=== PATIENT | female | born 1940 | race Caucasian/White ===

== ENCOUNTER 2018-01-17 12:13 | Emergency (ER) | payer OTHER ==
[2018-01-17 13:26] LABS: Absolute Lymphocytes (CBC) 1.5 K/uL (0.7-4.9); Absolute Monocytes 0.5 K/uL (0.1-1.3); Absolute Neutrophil 2.8 K/uL (1.8-8.0); Basophils % 0.7 % (0-1.3); Eosinophils % 0.9 % (0-4.4); MCH 29.6 pg (27.0-35.0); MCV 88.9 fL (80-100); MPV 8.3 fL (7.6-11.3); Monocytes % 9.8 % (3.3-12.3); RBC Red Blood Cell Count 4.17 M/uL (3.86-4.86)
[2018-01-17 13:38] LABS: Potassium 3.8 mEq/L (3.6-5.0)
[2018-01-17 13:44] LABS: Albumin 3.9 g/dL (3.2-5.5); Bilirubin Direct 0.1 mg/dL (0-0.2); Bilirubin Total 0.6 mg/dL (0.3-1.2); Magnesium 2.1 mg/dL (1.8-2.5); Protein, Total 6.9 g/dL (6.0-8.3)
[2018-01-17 13:48] LABS: CKMB Creatine Kinase MB 1.4 ng/ml (0.3-4.0)
--- NOTE | 2018-01-17 14:16 | RAD REPORT ---
EXAM DESCRIPTION: [place] Single View01/17/2018 1:40 pm CLINICAL HISTORY: Hypertension COMPARISON: November 2016 FINDINGS: The lungs appear clear of acute infiltrate. The heart is borderline enlarged IMPRESSION: No acute abnormalities displayed
--- NOTE | 2018-01-17 14:43 | RAD REPORT ---
EXAM DESCRIPTION: CTFacial Bones W Con Mpr01/17/2018 2:15 pm CLINICAL HISTORY: Jaw pain/facial pain COMPARISON: None. TECHNIQUE: Computed axial tomography of the face was obtained. 50 cc Isovue-[address] scans are performed using dose optimization technique as appropriate and may include automated exposure control or mA/KV adjustment according to patient size. FINDINGS: A 1 centimeter low to intermediate density area is present within the left aspect of the e piglottis. The aryepiglottic folds are normal. The remainder of the visualized nasopharynx and oropha rynx appear unremarkable. The parotid and submandibular glands appear unremarkable. Fluid within the sinuses is not seen. Fluid within the mastoids is not noted. A tooth abscess is not seen. . IMPRESSION: 1 centimeter low to intermediate density area within the left aspect of the epiglottis m ay represent a mass. Direct visualization is recommended. .
--- NOTE | 2018-01-17 15:39 | EDPHYS ---
Physician Documentation [facility] Name: Marisol San Age: 77 yrs Sex: Female : 1940 Arrival Date: 01/17/2018 Time: 12:15 Bed 16 Private MD: Lamont Brennan V ED Physician Murali Park HPI: 01/17 12:55 This 77 yrs old Female presents to ER via Ambulatory with complaints of Jaw cp Pain. 12:55 The patient presents with pain, swelling right facial cheek area. The problem is cp located in the right jaw. 12:55 Onset: The symptoms/episode began/occurred yesterday. Duration: The symptoms are cp intermittent, with no pattern. Associated signs and symptoms: Pertinent negatives: dysphagia, fever, inability to eat, vomiting. Patient denies chest pain, denies neck pain, denies difficulty swallowing or food getting stuck. Historical: - Allergies: 12:32 Levothyroxine Sodium; ph 12:32 Morphine; ph 12:32 NSAIDS; ph 12:32 Sulfa (Sulfonamide Antibiotics); ph 12:32 OTC medications; ph - Home Meds: 12:32 aspirin 325 mg Oral TbEC 1 tab once daily [Active]; metoprolol tartrate 25 mg Oral tab ph 0.5 tab 2 times per day [Active]; - PMHx: 12:32 Cataracts; Hypertension; ph - PSHx: 12:32 CATARACTS; Cholecystectomy; ovaries; ph - Immunization history:: Adult Immunizations up to date. - Social history:: Smoking status: Patient/guardian denies using tobacco. - Ebola Screening: : Patient denies travel to an Ebola-affected area in the 21 days before illness onset. ROS: 13:00 Constitutional: Negative for body aches, chills, fever, poor PO intake. cp 13:00 Eyes: Negative for injury, pain, redness, and discharge. cp 13:00 ENT: Positive for right side jaw pain, Negative for injury or acute deformity, drainage from ear(s), ear pain, sore throat, dental pain, difficulty swallowing, difficulty handling secretions. 13:00 Neck: Negative for pain with movement, pain at rest, stiffness, bony tenderness. 13:00 Cardiovascular: Negative for chest pain, edema, palpitations. 13:00 Respiratory: Negative for cough, shortness of breath, wheezing. 13:00 Abdomen/GI: Negative for abdominal pain, nausea, vomiting, and diarrhea, anorexia, black/tarry stool, rectal bleeding. 13:00 Back: Negative for pain at rest, pain with movement, radiated pain. 13:00 : Negative for urinary symptoms. 13:00 Skin: Negative for cellulitis, rash. 13:00 Neuro: Negative for altered mental status, dizziness, headache, syncope, near syncope, weakness. 13:00 All other systems are negative. Exam: 13:08 Constitutional: The patient appears in no acute distress, alert, awake, cp non-diaphoretic, non-toxic, well developed, well nourished. 13:08 Eyes: Pupils equal round and reactive to light, extra-ocular motions intact. Lids and cp lashes normal. Conjunctiva and sclera are non-icteric and not injected. Cornea within normal limits. Periorbital areas with no swelling, redness, or edema. 13:08 Head/face: Noted is swelling, that is mild, of the right facial cheek, Sinus tenderness, is not appreciated. 13:08 ENT: External ear(s): are unremarkable, Ear canal(s): are normal, clear, TM's: are normal, no evidence of bulging, no erythema, dullness, bilaterally, Nose: is normal, Mouth: Lips: moist, Oral mucosa: pink and intact, moist, Tongue: is normal, abscess, is not appreciated, Posterior pharynx: Airway: no evidence of obstruction, patent, Tonsils: are normal in appearance, Uvula: midline, non-edematous, no erythema, swelling, is not appreciated, erythema, is not appreciated, exudate, is not appreciated, Dental exam: abscess, is not appreciated, fractured teeth are noted, not appreciated, gum swelling, not appreciated, pain, is not appreciated, Voice: is normal. 13:08 Neck: External neck: is normal, ROM/movement: is normal, is supple, without pain, no range of motions limitations, no meningismus, no nuchal rigidity. 13:08 Chest/axilla: Inspection: normal, Palpation: is normal, no crepitus, no tenderness. 13:08 Cardiovascular: Rate: normal, Rhythm: regular, Edema: is not appreciated, JVD: is not appreciated. 13:08 Respiratory: the patient does not display signs of respiratory distress, Respirations: normal, no use of accessory muscles, no retractions, no splinting, no tachypnea, labored breathing, is not present, Breath sounds: are clear throughout, no decreased breath sounds, no stridor, no wheezing. 13:08 Abdomen/GI: Inspection: abdomen appears normal, Palpation: abdomen is soft and non-tender, in all quadrants, rebound tenderness, is not appreciated, voluntary guarding, is not appreciated, involuntary guarding, is not appreciated. 13:08 Back: pain, is absent, ROM is normal. 13:08 Skin: cellulitis, is not appreciated, no rash present. 13:08 Neuro: Orientation: to person, place \T\ time. Mentation: lucid, able to follow commands, Motor: moves all fours, strength is normal, Sensation: no obvious gross deficits. 14:05 ECG was reviewed by the Attending Physician. cp Vital Signs: 12:30 BP 146 / 92; Pulse 82; Resp 18; Temp 98.0; Pulse Ox 95% on R/A; Weight 65.77 kg; Height ph 5 ft. 4 in. (162.56 cm); Pain 8/10; 13:00 BP 132 / 82; Pulse 75; Resp 17; Pulse Ox 96% on R/A; tw2 14:04 BP 134 / 83; Pulse 73; Resp 17; Pulse Ox 96% on R/A; tw2 15:11 BP 136 / 72; Pulse 81; Resp 21; Pulse Ox 96% on R/A; tw2 15:56 BP 125 / 79; Pulse 74; Resp 17; Pulse Ox 97% on R/A; tw2 12:30 Body Mass Index 24.89 (65.77 kg, 162.56 cm) ph MDM: 12:35 Patient medically screened. cp 13:00 Differential diagnosis: dental caries, dental abscess, pericoronitis, osteomyelitis, cp facial cellulitis, acute OK, angina. 15:33 Data reviewed: vital signs, nurses notes, lab test result(s), radiologic studies, CT cp scan. 15:35 Test interpretation: by ED physician or midlevel provider: ECG, plain radiologic cp studies. 15:35 Counseling: I had a detailed discussion with the patient and/or guardian regarding: the cp historical points, exam findings, and any diagnostic results supporting the discharge/admit diagnosis, lab results, radiology results, the need for outpatient follow up, an ENT specialist, maxillary/facial, to return to the emergency department if symptoms worsen or persist or if there are any questions or concerns that arise at home. Response to treatment: the patient's symptoms have mildly improved after treatment, and as a result, I will discharge patient. ED course: VSS. Discussed results of CT that showed concern for epiglottis mass. Patient with no signs of respiratory distress and is tolerating po foods/fluids. Cardiac work-up negative. Will discharge to home for continued monitoring. 01/17 12:51 Order name: Basic Metabolic Panel 01/17 12:51 Order name: CBC with Diff; Complete Time: 13:56 cp 01/17 12:51 Order name: Ckmb; Complete Time: 13:56 cp 01/17 12:51 Order name: CPK; Complete Time: 13:56 cp 01/17 12:51 Order name: LFT's; Complete Time: 13:56 cp 01/17 12:51 Order name: Magnesium; Complete Time: 13:56 cp 01/17 12:51 Order name: Troponin (emerg Dept Use Only); Complete Time: 13:56 cp 01/17 13:57 Interpretation: TROPED < 0.03; Reviewed. 01/17 12:51 Order name: XRAY Chest (1 view); Complete Time: 14:53 cp 01/17 12:51 Order name: EKG; Complete Time: 12:52 cp 01/17 12:51 Order name: Cardiac monitoring; Complete Time: 13:51 cp 01/17 12:51 Order name: EKG - Nurse/Tech; Complete Time: 13:51 cp 01/17 12:51 Order name: CT Facial Bones W/ Con \T\ Mpr 01/17 12:52 Order name: Basic Metabolic Panel; Complete Time: 13:56 EDMS 01/17 13:56 Interpretation: Normal except: GFR 76. cp 01/17 15:19 Order name: Urine Dipstick--Ancillary (enter results) 01/17 12:51 Order name: IV Saline Lock; Complete Time: 13:51 cp 01/17 12:51 Order name: Labs collected and sent; Complete Time: 13:18 cp 01/17 12:51 Order name: O2 Per Protocol; Complete Time: 13:28 cp 01/17 12:51 Order name: O2 Sat Monitoring; Complete Time: 13:28 cp 01/17 12:51 Order name: Urine Dipstick-Ancillary (obtain specimen); Complete Time: 15:34 cp EC:05 Rate is 80 beats/min. Rhythm is regular. NV interval is normal. QRS interval is normal. cp QT interval is normal. No ST changes noted. Interpreted by me. Reviewed by me. Administered Medications: No medications were administered Disposition: 01/18 07:41 Co-signature as Attending Physician, Murali Park MD. Disposition: 01/17/18 15:38 Discharged to Home. Impression: Jaw pain - Right Lower, Right Lower Facial Swelling. - Condition is Stable. - Discharge Instructions: Cellulitis. - Prescriptions for Clindamycin HCl 300 mg Oral Capsule - take 1 capsule by ORAL route every 6 hours for 10 days; 40 capsule. - Medication Reconciliation Form, Thank You Letter, Antibiotic Education, Prescription Opioid Use form. - Follow up: Terry Norris DDS; When: 1 - 2 days; Reason: right jaw pain. 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 - Problem is new. - Symptoms are unchanged. Signatures: Dispatcher [employer] EDLanie Angulo RN RN Raymon Urrutia PA PA Maryan Ying RN RN tw2 Murali Park MD MD Corrections: (The following items were deleted from the chart) 01/17 15:57 15:38 01/17/2018 15:38 Discharged to Home. Impression: Jaw pain - Right Lower; Right tw2 Lower Facial Swelling. Condition is Stable. Forms are Medication Reconciliation Form, Thank You Letter, Antibiotic Education, Prescription Opioid Use. Follow up: Terry Norris; When: 1 - 2 days; Reason: right jaw pain. 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 Problem is new. Symptoms are unchanged. cp
--- NOTE | 2018-01-17 15:39 | ER ---
Nurse's Notes [facility] Name: Marisol San Age: 77 yrs Sex: Female : 1940 Arrival Date: 01/17/2018 Time: 12:15 Bed 16 Private MD: Lamont Brennan V Diagnosis: Jaw pain-Right Lower;Right Lower Facial Swelling Presentation: 01/17 12:27 Presenting complaint: Patient states: " My bottom jaw on the right side started hurting ph on Wednesday. I started getting nauseous this morning. I thought maybe I had a bad tooth and I called Dr Valadez and he said that I should come here to be evaluated." Pt denies fever or recent tooth pain, also denies vomiting chest pain, or SOB. Transition of care: patient was not received from another setting of care. Onset of symptoms was January 17, 2018. Risk Assessment: Do you want to hurt yourself or someone else? Patient reports no desire to harm self or others. Initial Sepsis Screen: Does the patient meet any 2 criteria? No. Patient's initial sepsis screen is negative. Does the patient have a suspected source of infection? No. Patient's initial sepsis screen is negative. Care prior to arrival: None. 12:27 Method Of Arrival: Ambulatory ph 12:27 Acuity: NORA 3 ph Historical: - Allergies: 12:32 Levothyroxine Sodium; ph 12:32 Morphine; ph 12:32 NSAIDS; ph 12:32 Sulfa (Sulfonamide Antibiotics); ph 12:32 OTC medications; ph - Home Meds: 12:32 aspirin 325 mg Oral TbEC 1 tab once daily [Active]; metoprolol tartrate 25 mg Oral tab ph 0.5 tab 2 times per day [Active]; - PMHx: 12:32 Cataracts; Hypertension; ph - PSHx: 12:32 CATARACTS; Cholecystectomy; ovaries; ph - Immunization history:: Adult Immunizations up to date. - Social history:: Smoking status: Patient/guardian denies using tobacco. - Ebola Screening: : Patient denies travel to an Ebola-affected area in the 21 days before illness onset. Screenin:05 Abuse screen: Denies threats or abuse. Nutritional screening: No deficits noted. tw2 Tuberculosis screening: No symptoms or risk factors identified. Fall Risk None identified. Assessment: 12:30 General: Appears in no apparent distress. Behavior is calm, cooperative, appropriate tw2 for age. Pain: Complains of pain in right jaw. Neuro: Level of Consciousness is awake, alert, obeys commands, Oriented to person, place, time, situation. Neuro: Speech is normal, Facial symmetry appears normal. Cardiovascular: Denies chest pain, shortness of breath, Heart tones S1 S2 Capillary refill < 3 seconds. Respiratory: Airway is patent Respiratory effort is even, unlabored, Respiratory pattern is regular, symmetrical, Breath sounds are clear bilaterally. GI: No signs and/or symptoms were reported involving the gastrointestinal system. Abdomen is flat, Bowel sounds present X 4 quads. : No signs and/or symptoms were reported regarding the genitourinary system. EENT: No signs and/or symptoms were reported regarding the EENT system. Derm: No signs and/or symptoms reported regarding the dermatologic system. Musculoskeletal: Range of motion: intact in all extremities. 13:00 Reassessment: Patient appears in no apparent distress at this time. No changes from tw2 previously documented assessment. Patient and/or family updated on plan of care and expected duration. Pain level reassessed. Patient is alert, oriented x 3, equal unlabored respirations, skin warm/dry/pink. 14:04 Reassessment: Patient appears in no apparent distress at this time. No changes from tw2 previously documented assessment. Patient and/or family updated on plan of care and expected duration. Pain level reassessed. Patient is alert, oriented x 3, equal unlabored respirations, skin warm/dry/pink. 15:12 Reassessment: Patient appears in no apparent distress at this time. No changes from tw2 previously documented assessment. Patient and/or family updated on plan of care and expected duration. Pain level reassessed. Patient is alert, oriented x 3, equal unlabored respirations, skin warm/dry/pink. 15:56 Reassessment: Patient appears in no apparent distress at this time. No changes from tw2 previously documented assessment. Patient and/or family updated on plan of care and expected duration. Pain level reassessed. Patient is alert, oriented x 3, equal unlabored respirations, skin warm/dry/pink. Vital Signs: 12:30 BP 146 / 92; Pulse 82; Resp 18; Temp 98.0; Pulse Ox 95% on R/A; Weight 65.77 kg; Height ph 5 ft. 4 in. (162.56 cm); Pain 8/10; 13:00 BP 132 / 82; Pulse 75; Resp 17; Pulse Ox 96% on R/A; tw2 14:04 BP 134 / 83; Pulse 73; Resp 17; Pulse Ox 96% on R/A; tw2 15:11 BP 136 / 72; Pulse 81; Resp 21; Pulse Ox 96% on R/A; tw2 15:56 BP 125 / 79; Pulse 74; Resp 17; Pulse Ox 97% on R/A; tw2 12:30 Body Mass Index 24.89 (65.77 kg, 162.56 cm) ph ED Course: 12:15 Patient arrived in ED. mr 12:15 Lamont Brennan MD is Private Physician. mr 12:30 Triage completed. ph 12:33 Arm band placed on. ph 12:34 Raymon Urrutia PA is PHCP. cp 12:35 Murali Park MD is Attending Physician. cp 12:35 Placed in gown. Bed in low position. shelter monitor on. Pulse ox on. NIBP on. Warm tw2 blanket given. 12:36 Maryan Hurd, RN is Primary Nurse. tw2 12:45 Inserted saline lock: 20 gauge in left antecubital area, using aseptic technique. Blood tw2 collected. 13:21 Radiology exam delayed due to lab results not completed at this time. (BUN/Creatinine). eh 13:33 Radiology exam delayed due to lab results not completed at this time. (BUN/Creatinine). eh 13:38 X-ray completed. Portable x-ray completed in exam room. Patient tolerated procedure jw2 well. 13:40 XRAY Chest (1 view) In Process Unspecified. EDMS 14:[address] via wheelchair. vm2 14:14 CT completed. Patient tolerated procedure well. Patient moved back from CT. vm2 14:15 CT Facial Bones W/ Con \\T\\ Mpr In Process Unspecified. EDMS 15:33 Terry Norris DDS is Referral Physician. cp 15:34 Sujey Cornejo MD is Referral Physician. cp 15:35 No provider procedures requiring assistance completed. tw2 15:55 IV discontinued, intact, bleeding controlled, No redness/swelling at site. Pressure tw2 dressing applied. Administered Medications: No medications were administered Outcome: 15:38 Discharge ordered by . cp 15:55 Discharged to home ambulatory, with significant other. tw2 15:55 Condition: stable 15:55 Discharge instructions given to patient, significant other, Instructed on discharge instructions, follow up and referral plans. medication usage, Demonstrated understanding of instructions, follow-up care, medications, Prescriptions given X 1. 15:57 Patient left the ED. tw2 Signatures: Dispatcher [employer] EDMS Anjana Florian Holden, Lanie Pearson, RN RN ph Ghada, Raymon, PA PA Savi Crain jw2 Maryan Hurd RN RN tw2 Rhoda Sorensen [facility]
[2018-01-17 15:45] LABS: Urine Blood NEGATIVE (NEG); Urine Glucose NEGATIVE (NEG); Urine Protein NEGATIVE (NEG)
--- NOTE | 2018-01-18 06:32 | EKG ---
Test Date: 2018-01-17 Test Time: 13:59:01 Mica Plate Layer Hand: SARAH MEASUREMENT RESULTS: Intervals: Rate: 80 ID: [id number] QRSD: 88 QT: 402 QTc: 463 [place]: P: 68 ID: [id number] QRS: 1 T: 36 INTERPRETIVE STATEMENTS: Sinus rhythm with premature atrial complexes Otherwise normal ECG Compared to ECG 12/03/2010 23:27:56 Atrial premature complex(es) now present Electronically Signed On 01-18-18 06:31:37 CDT by Jann Vivar
== END 2018-01-17 15:57 | disposition home or self-care (01) ==
LOC: ER 12:13
DX: R68.84 Jaw pain (principal); R22.9 Localized swelling, mass and lump, unspecified; I10 Essential (primary) hypertension; Z79.82 Long term (current) use of aspirin; Z88.2 Allergy status to sulfonamides; Z88.5 Allergy status to narcotic agent; Z88.6 Allergy status to analgesic agent; Z88.8 Allergy status to other drugs, medicaments and biological substances
CPT/HCPCS: 36415; 70487; 71045; 76377; 80048; 80076; 81003; 82550; 82553; 83735; 84484; 85025; 93005; Q9967; 99285